=== PATIENT | female | born 1965 | race Caucasian/White ===

== ENCOUNTER → 2017-02-10 | Day surgery (SDC) | payer BC ==
[2017-01-28 11:57] VITALS: Ht 167.6 cm; Wt 100.0 kg
[~2017-02-10] VITALS: Ht 167.6 cm; Wt 100.0 kg
[~2017-02-10] MED LIST: ASCA500 PO; ASPI81TA28 PO; CALCTAB5 PO; CYAN500T13 PO; FLV1 PO; INDSR80 PO; MULT-506 PO; OLME40TA30 PO; OMEGCAP2 PO; RMCI IV; SODIUM CHLORIDE 0.9% 500ML 500 ML IV ONE; VITAMIN D PO; ZINC PO
--- NOTE | 2017-02-10 11:19 | Endo History and Physical ---
History & Physical Date of Service: Feb 10, 2017. Chief Complaint: Crohns Referring Physician: Dr. Foreign Campos History of Present Illness 51 yo CF who presents for colonoscopy secondary to Crohn's Disease. Past Medical History Arthritis, Gastrointestinal Disorder, Hypertension, Chronic Steroid Use Past Surgical History Hx Cardiac Surgery: No Hx Internal Defibrillator: No Hx Pacemaker: No Hx Abdominal Surgery: Yes (PARTIAL BOWEL RESECTION X2, APPY, UTERINE ABLATION) Hx of Implantable Prosthesis: No Hx Post-Op Nausea and Vomiting: No Hx Cancer Surgery: No Hx Thoracic Surgery: No Hx Orthopedic: Yes (LT/RT CTR) Hx Urinary Tract Surgery: No Family History Polyp Social History Smoking Status: Never Smoker Hx Substance Use: No Hx Alcohol Use: No Allergies Coded Allergies: No Known Allergies (Verified , 01/28/17) Current Medications Reported Home Medications Medications Dose Route/Sig Max Daily Dose Days Date Category Dose Instructions Aspirin Ec (Aspirin) 81 Mg Tab 81 Mg PO QAM 01/28/17 Reported Propranolol HCl ER (Propranolol HCl) 80 Mg Capcr 1 Tab PO QAM 01/28/17 Reported Fish Oil (Chestnut-3 Fatty Acids) 1 Cap Cap 1 Tab PO QAM 01/28/17 Reported Folic Acid 1 Mg Tab 1 Tab PO QAM 05/21/16 Reported [Zinc] 0.5 Tab PO QAM 05/21/16 Reported DOSE 50MG, SLITS IN HALF Caltrate (Calcium) 600 Mg Tab 600 Mg PO QAM 05/21/16 Reported [Vitamin D] 500 Mcg PO QAM 05/21/16 Reported Vitamin B12 500MCG (Cyanocobalamin) 500 Mcg Tab 500 Mcg PO QAM 05/21/16 Reported Vitamin C (Ascorbic Acid) 500 Mg Tab 1 Tab PO QAM 05/21/16 Reported Multivitamin (Multivitamins) Tab 1 Tab PO QAM 05/21/16 Reported Remicade (Infliximab) 100 Mg/10 Ml Inj 1 Dose IV [id number] 05/21/16 Reported Benicar Hct 40/12.5 (Olmesartan/HCTZ) Tab 1 Tab PO QAM 05/21/16 Reported Vital Signs Weight (Kilograms): 100 Height (Feet): 5 Height (Inches): 6 Date Time Temp Pulse Resp B/P Pulse Ox O2 Delivery O2 Flow Rate FiO2 02/10/17 11:03 36.4 79 18 138/77 99 Room Air Physical Exam General Appearance: WD/WN, no apparent distress Respiratory/Chest: Auscultation: breath sounds normal Cardiovascular: Heart Auscultation: RRR Abdomen: Bowel Sounds: normal Inspection & Palpation: soft, non-distended, no tenderness, guarding & rebound Assessment and Plan Assessment: 51 yo CF who presents for colonoscopy secondary to Crohn's Disease. Plan: Proceed with colonoscopy.
--- NOTE | 2017-02-10 12:07 | Discharge Instructions ---
Endoscopy Patient Instructions Date / Procedure(s) Performed Feb 10, 2017. Colonoscopy Allergy Information Coded Allergies: No Known Allergies (Verified , 01/28/17) Discharge Date / Findings Feb 10, 2017. Crohn's Ileocolitis with mild disease activity Medication Instructions Stopped Medication(s): Patient was told to not take her benicar today. All vitamins were last taken on 02/06/17. OK to resume all medications today as prescribed Reported Home Medications Medications Dose Route/Sig Max Daily Dose Days Date Category Dose Instructions Aspirin Ec (Aspirin) 81 Mg Tab 81 Mg PO QAM 01/28/17 Reported Propranolol HCl ER (Propranolol HCl) 80 Mg Capcr 1 Tab PO QAM 01/28/17 Reported Fish Oil (Warren-3 Fatty Acids) 1 Cap Cap 1 Tab PO QAM 01/28/17 Reported Folic Acid 1 Mg Tab 1 Tab PO QAM 05/21/16 Reported [Zinc] 0.5 Tab PO QAM 05/21/16 Reported DOSE 50MG, SLITS IN HALF Caltrate (Calcium) 600 Mg Tab 600 Mg PO QAM 05/21/16 Reported [Vitamin D] 500 Mcg PO QAM 05/21/16 Reported Vitamin B12 500MCG (Cyanocobalamin) 500 Mcg Tab 500 Mcg PO QAM 05/21/16 Reported Vitamin C (Ascorbic Acid) 500 Mg Tab 1 Tab PO QAM 05/21/16 Reported Multivitamin (Multivitamins) Tab 1 Tab PO QAM 05/21/16 Reported Remicade (Infliximab) 100 Mg/10 Ml Inj 1 Dose IV [id number] 05/21/16 Reported Benicar Hct 40/12.5 (Olmesartan/HCTZ) Tab 1 Tab PO QAM 05/21/16 Reported Provider Instructions Activity Restrictions - No exercising or heavy lifting for 24 hours. - Do not drink alcohol the day of the procedure. - Do not drive a car or operate machinery until the day after the procedure. - Do not make any important decisions or sign important papers in 24 hours after the procedure. Following Day: - Return to full activity which may include returning to work/school. Diet Start your diet with liquids and light foods (jello, soup, juice, toast). Then eat your usual diet if not nauseated. Treatment For Common After Affects For mild abdominal pain, bloating, or excessive gas: - Rest - Eat lightly - Lie on right side Follow-Up Information Follow-up with Dr. Foreign Campos as scheduled Anesthesia Information What You Should Know You have had a procedure that required some medicine to reduce anxiety and discomfort. This treatment is called moderate sedation. After receiving the treatment, you may be sleepy, but you will be able to breathe on your own. The effects of the treatment may last for several hours. Follow these instructions along with Activity/Diet recommendations noted above: * Do NOT do anything where dizziness or clumsiness would be dangerous. * Rest quietly at home today, then you can be up and about tomorrow. * Have a responsible person stay with you the rest of today. * You may have had an I.V. today. If so, you may take the dressing off later today. Recommendations Call your doctor if: * Trouble breathing * Continuous vomiting for more than 24 hours * Temperature above 101 degrees * Severe abdominal pain or bloating * Pain not relieved by pain medicine ordered * There is increased drainage or redness from any incision * A large amount of rectal bleeding greater than 2-3 tablespoons. (If you had a polyp/s removed or have hemorrhoids, a small amount of blood - from the rectum is to be expected.) * You have any unanswered questions or concerns. IN THE EVENT OF A SERIOUS EMERGENCY, GO TO THE NEAREST EMERGENCY ROOM Your discharge instructions were prepared by provider Varinder Moody. Patient Instructions Signature Page Ashley Dumont Patient (or Guardian) Signature/Date: I have read and understand the instructions given to me by my caregivers. Caregiver/RN/Doctor Signature/Date: The above-named patient and/or guardian has received patient instructions on this date. + Original Patient Signature Page (only) stays with chart. Please make copy for patient.
--- NOTE | 2017-02-10 12:12 | GI REPORT ---
Procedure Date: 02/10/2017 11:36 AM THIS REPORT HAS BEEN AMENDED Addendum Number: 1 Addendum Date: 03/11/2017 1:32:23 PM No specimens were obtained during this procedure, and therefore, no pathology is pending. Procedure: Colonoscopy Indications: Disease activity assessment of Crohn's disease of the small bowel and colon Medicines: Monitored Anesthesia Care Complications: No immediate complications. Estimated Blood Loss: Estimated blood loss: none. Procedure: Pre-Anesthesia Assessment: - Prior to the procedure, a History and Physical was performed, and patient medications and allergies were reviewed. The patient's tolerance of previous anesthesia was also reviewed. The risks and benefits of the procedure and the sedation options and risks were discussed with the patient. All questions were answered, and informed consent was obtained. Prior Anticoagulants: The patient has taken aspirin, last dose was 7 days prior to procedure. ASA Grade Assessment: II - A patient with mild systemic disease. After reviewing the risks and benefits, the patient was deemed in satisfactory condition to undergo the procedure. After I obtained informed consent, the scope was passed under direct vision. Throughout the procedure, the patient's blood pressure, pulse, and oxygen saturations were monitored continuously. The On-site loaner was introduced through the anus and advanced to the ileocolonic anastomosis. The colonoscopy was performed without difficulty. The patient tolerated the procedure well. The quality of the bowel preparation was good. The terminal ileum, ileocecal valve, appendiceal orifice, and rectum were photographed. Findings: There was evidence of a prior end-to-side ileo-colonic anastomosis in the ascending colon. This was patent and was characterized by healthy appearing mucosa. The anastomosis was traversed. Inflammation characterized by pseudopolyps was found as patches surrounded by normal mucosa. This was mild in severity. Impression: - Patent end-to-side ileo-colonic anastomosis, characterized by healthy appearing mucosa. - Inflammation was found in the colon secondary to Crohn's disease, with ileitis and colitis. - No specimens collected. Recommendation: - Resume previous diet. - Continue present medications. - Repeat colonoscopy for surveillance based on pathology results. - Return to GI clinic as previously scheduled. Varinder Moody DO 02/10/2017 12:11:45 PM This report has been signed electronically. Note Initiated On: 02/10/2017 11:36 AM I attest to the content of the Intraoperative Record and orders documented therein, exceptions below Varinder Valencia DO [place] 03/11/2017 1:32:49 PM This report has been signed electronically.
[2017-02-10 12:39] VITALS: BP 151/74; PULSE 65; O2SAT 100
--- NOTE | 2017-02-10 13:02 | Anesthesiology Progress Note ---
Anesthesia Post Op Note Date & Time Feb 10, 2017 at 13:01 Vital Signs Pain Intensity: 0 Vital Signs Past 12 Hours Date Time Temp Pulse Resp B/P Pulse Ox O2 Delivery O2 Flow Rate FiO2 02/10/17 12:39 65 20 151/74 100 Room Air 02/10/17 12:25 70 20 148/75 100 Room Air 02/10/17 12:10 81 18 91/40 97 Room Air 02/10/17 11:03 36.4 79 18 138/77 99 Room Air Notes Mental Status: alert / awake / arousable, participated in evaluation Pt Amnestic to Procedure: Yes Nausea / Vomiting: adequately controlled Pain: adequately controlled Airway Patency, RR, SpO2: stable & adequate BP & HR: stable & adequate Hydration State: stable & adequate Anesthetic Complications: no major complications apparent
== END | disposition home or self-care (01) ==
LOC: C.GI 10:40
PROVIDERS: ATTEND Internal Medicine
DX: K50.90 Crohn's disease, unspecified, without complications (principal); I10 Essential (primary) hypertension; Z79.52 Long term (current) use of systemic steroids; Z98.890 Other specified postprocedural states; Z90.89 Acquired absence of other organs; Z83.71 Family history of colonic polyps; Z68.35 Body mass index [BMI] 35.0-35.9, adult; E66.9 Obesity, unspecified

== ENCOUNTER → 2017-02-18 | Outpatient (CLI) | payer BC ==
[~2017-02-18] MED LIST changes: -SODIUM CHLORIDE 0.9% 500ML 500 ML IV ONE
--- NOTE | 2017-02-19 14:41 | MAMMOGRAPHY REPORT ---
BILATERAL DIGITAL SCREENING MAMMOGRAM TOMOSYNTHESIS WITH CAD: 02/18/2017 CLINICAL HISTORY: Routine screening examination. TECHNIQUE: Breast tomosynthesis in addition to standard 2D mammography was performed. Current study was also evaluated with a Computer Aided Detection (CAD) system. COMPARISON: Comparison is made to exams dated: 02/02/2016 mammogram - [facility], 11/30/2014 mammogram, 12/17/2013 mammogram, and 11/28/2011 mammogram. BREAST COMPOSITION: The tissue of both breasts is almost entirely fatty. FINDINGS: No suspicious mass, architectural distortion or cluster of microcalcifications is seen. IMPRESSION: ACR BI-RADS CATEGORY 1: NEGATIVE There is no mammographic evidence of malignancy. A 1 year screening mammogram is recommended. The p atient will receive written notification of the results. Approximately 10% of breast cancers are not detected with mammography. A negative mammographic repor t should not delay biopsy if a clinically suggestive mass is present. Nevin bravo/penrad:02/18/2017 22:09:55 Rail Bonder: Soraya [id number](R)([place]), [facility] letter sent: Normal 1/2 BI-RADS Code: ACR BI-RADS Category 1: Negative
== END | disposition home or self-care (01) ==
LOC: C.MAMM 11:34
PROVIDERS: ATTEND Obstetrics & Gynecology
DX: Z12.31 Encounter for screening mammogram for malignant neoplasm of breast (principal)

== ENCOUNTER → 2017-03-25 | Outpatient (CLI) | payer BC ==
[2017-03-25 14:41] LABS: BASO % 0.7 %; BASO ABS # 0.08 K/uL (0-0.2); COMPLETE YES; EOS % 3.6 %; IG% 0.3 %; LYMPH % 28.3 %; LYMPH ABS # 3.25 K/uL (1.2-3.4); MEAN CELL VOLUME 88.2 fL (80-100); MEAN CORPUSCULAR HGB CONC 32.9 g/dl (32-36); MEAN PLATELET VOLUME 10.7 fL (7.4-10.4); MONO % 6.2 %; NEUT % 60.9 %; PLATELET COUNT 301 K/uL (130-400); RED BLOOD COUNT 4.76 M/uL (4.2-5.4); WHITE BLOOD COUNT 11.49 K/uL (4.8-10.8)
[2017-03-25 15:27] LABS: ALT/SGPT 41 U/L (12-78); AST/SGOT 24 U/L (15-37); BLOOD UREA NITROGEN 18 mg/dl (7-18); BUN/CREATININE RATIO 24.2 (10-20); CALCIUM 9.5 mg/dl (8.5-10.1); CARBON DIOXIDE 32 mmol/L (21-32); CHLORIDE 104 mmol/L (98-107); CREATININE 0.76 mg/dl (0.60-1.20); GLUCOSE 83 mg/dl (70-99); POTASSIUM 4.1 mmol/L (3.5-5.1); SODIUM 140 mmol/L (136-145)
[2017-03-25 15:30] LABS: ALB/GLOB RATIO 0.9 (0.9-2); ALKALINE PHOSPHATASE 94 U/L (45-117)
== END | disposition home or self-care (01) ==
LOC: C.LAB1850 12:37
PROVIDERS: ATTEND Registered Nurse
DX: K50.90 Crohn's disease, unspecified, without complications (principal)

== ENCOUNTER → 2017-09-30 | Outpatient (CLI) | payer BC | END | disposition home or self-care (01) | LOC: C.MAMM 08:48 | PROVIDERS: ATTEND Registered Nurse | DX: K50.90 Crohn's disease, unspecified, without complications (principal) ==

== ENCOUNTER → 2018-01-07 | Outpatient (CLI) | payer BC ==
[2018-01-07 14:40] LABS: BASO % 1.4 %; EOS ABS # 0.28 K/uL (0-0.5); HEMATOCRIT 37.8 % (37-47); HEMOGLOBIN 12.7 g/dL (12.0-16.0); IG# 0.02 K/uL (0.00-0.02); LYMPH % 35.7 %; LYMPH ABS # 2.52 K/uL (1.2-3.4); MEAN CELL VOLUME 83.8 fL (80-100); MEAN CORPUSCULAR HEMOGLOBIN 28.2 pg (25-34); MEAN CORPUSCULAR HGB CONC 33.6 g/dl (32-36); MEAN PLATELET VOLUME 10.4 fL (7.4-10.4); MONO % 9.6 %; MONO ABS # 0.68 K/uL (0.11-0.59); NEUT ABS # 3.46 K/uL (1.4-6.5); PLATELET COUNT 243 K/uL (130-400); RED CELL DISTRIBUTION WIDTH CV 13.2 % (11.5-14.5); RED CELL DISTRIBUTION WIDTH SD 40.3 fL (36.4-46.3); WHITE BLOOD COUNT 7.06 K/uL (4.8-10.8)
[2018-01-07 15:10] LABS: ALBUMIN 3.5 gm/dl (3.4-5.0); ALT/SGPT 37 U/L (12-78); AST/SGOT 29 U/L (15-37); BLOOD UREA NITROGEN 16 mg/dl (7-18); CARBON DIOXIDE 29 mmol/L (21-32); GLUCOSE 124 mg/dl (70-99); POTASSIUM 3.6 mmol/L (3.5-5.1); SODIUM 138 mmol/L (136-145)
[2018-01-07 15:12] LABS: ALKALINE PHOSPHATASE 92 U/L (45-117); TOTAL PROTEIN 7.9 gm/dl (6.4-8.2)
[2018-01-09 08:34] LABS: QUANTIF MITOGEN-NIL 7.51 IU/ML; QUANTIFERON NEGATIVE (NEGATIVE); QUANTIFERON NIL 0.07 IU/ML
== END | disposition home or self-care (01) ==
LOC: C.LAB1850 13:07
PROVIDERS: ATTEND Registered Nurse
DX: K50.90 Crohn's disease, unspecified, without complications (principal)

== ENCOUNTER → 2018-01-14 | Outpatient (CLI) | payer BC | END | disposition home or self-care (01) | LOC: C.LABSPEC 12:47 | PROVIDERS: ATTEND Registered Nurse | DX: K50.90 Crohn's disease, unspecified, without complications (principal); K52.9 Noninfective gastroenteritis and colitis, unspecified ==

== ENCOUNTER → 2018-03-26 | Outpatient (CLI) | payer BC ==
--- NOTE | 2018-03-27 07:47 | MAMMOGRAPHY REPORT ---
BILATERAL DIGITAL SCREENING MAMMOGRAM TOMOSYNTHESIS WITH CAD: 03/26/2018 CLINICAL HISTORY: Routine screening. Patient has no complaints. TECHNIQUE: Breast tomosynthesis in addition to standard 2D mammography was performed. Current study was also evaluated with a Computer Aided Detection (CAD) system. COMPARISON: Comparison is made to exams dated: 02/18/2017 mammogram, 02/02/2016 mammogram - [facility], 11/30/2014 mammogram, 12/17/2013 mammogram, and 11/28/2011 mammogram. BREAST COMPOSITION: The tissue of both breasts is almost entirely fatty. FINDINGS: No suspicious masses, calcifications, or areas of architectural distortion are noted in ei ther breast. There has been no significant interval change compared to prior exams. IMPRESSION: ACR BI-RADS CATEGORY 1: NEGATIVE There is no mammographic evidence of malignancy. A 1 year screening mammogram is recommended. The pa tient will receive written notification of the results. Approximately 10% of breast cancers are not detected with mammography. A negative mammographic report should not delay biopsy if a clinically suggestive mass is present. Nikki Escobar M.D. ah/:03/26/2018 12:46:48 Director Of Education And Training: Bhumika Dias RT(R)(M)(BD), [facility] letter sent: Normal 1/2 BI-RADS Code: ACR BI-RADS Category 1: Negative
== END | disposition home or self-care (01) ==
LOC: C.MAMM 11:07
PROVIDERS: ATTEND Obstetrics & Gynecology
DX: Z12.31 Encounter for screening mammogram for malignant neoplasm of breast (principal)

== ENCOUNTER → 2018-03-26 | Outpatient (CLI) | payer BC | END | disposition home or self-care (01) | LOC: C.LAB1850 13:26 | PROVIDERS: ATTEND Obstetrics & Gynecology | DX: N93.9 Abnormal uterine and vaginal bleeding, unspecified (principal) ==